=== PATIENT | female | born 1960 | race Caucasian/White ===

== ENCOUNTER 2020-04-10 13:48 | Emergency (ER) | payer SELFPAY ==
[2020-04-10] MEDS ORDERED: HYDROcodone/Acetaminophen 5/325 mg Tablet ONE (14:09)
--- NOTE | 2020-04-10 14:24 | RAD ---
Exam: Chest one view Right RIBS 3 views HISTORY: Right inferior rib pain, after fall FINDINGS: Chest one view: Normal cardiac silhouette. Pulmonary vessels and hilum are normal. Costophr enic angles are clear. No masses or consolidation. No pneumothorax. There is a 10 right rib fractures Right rib series: Posterior right 10th rib fracture. No additional fractures. IMPRESSION: Posterior right 10th rib fracture.
[2020-04-10] MEDS ORDERED: Acetaminophen 500 MG TAB ONE (14:34)
== END 2020-04-10 14:45 | disposition home or self-care (01) ==
LOC: MADERS 13:48
DX: S22.31XA Fracture of one rib, right side, initial encounter for closed fracture (principal); F17.210 Nicotine dependence, cigarettes, uncomplicated; W11.XXXA Fall on and from ladder, initial encounter